=== PATIENT | female | born 1945 | race Caucasian/White ===

== ENCOUNTER 2025-04-17 12:51 | Inpatient (IN) | payer OTHER ==
[~2025-04-17] VITALS: Ht 162.6 cm; Wt 53.5 kg
[2025-04-17] MEDS ORDERED: ALBUTEROL FS 2.5 MG/3 ML VIAL.NEB ONE (13:12)
[2025-04-17] MEDS ORDERED: IPRATROPIUM NEB FS 0.5 MG/2.5 ML AMPUL.NEB ONE (13:13)
[2025-04-17 13:15] VITALS: O2SAT 93
[2025-04-17] MEDS: IPRATROPIUM NEB FS 0.5 MG/2.5 ML AMPUL.NEB NEB ONE (13:21)
[2025-04-17] MEDS: ALBUTEROL FS 2.5 MG/3 ML VIAL.NEB CONTNEB ONE (13:21)
[2025-04-17 14:09] VITALS: O2SAT 99
[2025-04-17 14:37] LABS: PLATELET COUNT (AUTO) 312 K/uL (150-450); RED BLOOD CELL COUNT(AUTO) 5.50 MIL/uL (4.0-5.2); RED CELL DISTRIBUTION WIDTH 15.8 % (11.5-15.0); WHITE BLOOD COUNT (AUTO) 13.6 K/uL (4.3-11.0)
[2025-04-17 14:45] LABS: CALCIUM, SERUM 9.4 mg/dL (8.5-10.1); CREATININE 0.9 mg/dL (0.6-1.3); SODIUM SERUM 136.0 mmol/L (136-145); UREA NITROGEN, BLOOD 15.0 mg/dL (7-18)
[2025-04-17] MEDS ORDERED: IOHEXOL-300 100 ML VIAL IV ONE (15:00)
[2025-04-17] MEDS ORDERED: CEFTRIAXONE 1GM BAG (ER ONLY) 50 ML IV ONE (17:17)
[2025-04-17] MEDS: IV NS 0.9% 1,000 ML BAG IV ONE (17:30)
[2025-04-17] MEDS: CEFTRIAXONE 1 G in IV D5W 50 ML IV ONE (17:31)
[2025-04-17] MEDS: AZITHROMYCIN 500 MG in IV D5W 250 ML IV ONE (18:00)
[2025-04-17 18:13] LABS: LACTIC ACID 3.1 mmol/L (0.4-2.0)
[2025-04-17] MEDS ORDERED: ACETAMINOPHEN 325 MG TABLET ONE (18:32)
[2025-04-17] MEDS: ACETAMINOPHEN 325 MG TABLET PO ONE (18:39)
[2025-04-17 19:55] VITALS: BP 119/61; TEMP 97.9; O2SAT 95
[2025-04-17] MEDS ORDERED: ONDANSETRON HCL/PF 4 MG/2 ML VIAL IVP PRN (21:00)
[2025-04-17] MEDS ORDERED: MAG HYDROX/AL HYDROX/SIMETH 30 ML UDC PO PRN (21:00)
[2025-04-17 21:21] LABS: LACTIC ACID REFLEX 3.4 mmol/L (0.4-1.9)
[2025-04-17] MEDS: CEFTRIAXONE 1 G in IV D5W 50 ML IV SCH (21:24)
[2025-04-17] MEDS: AZITHROMYCIN 500 MG in IV D5W 250 ML IV SCH (22:20)
[2025-04-18] VITALS (17 sets, daily range): BP systolic 94–132; BP diastolic 55–84; TEMP 97.6–97.9; O2SAT 90–100
[2025-04-18 07:26] LABS: PLATELET COUNT (AUTO) 275 K/uL (150-450); RED BLOOD CELL COUNT(AUTO) 4.83 MIL/uL (4.0-5.2); RED CELL DISTRIBUTION WIDTH 15.6 % (11.5-15.0); WHITE BLOOD COUNT (AUTO) 12.5 K/uL (4.3-11.0)
[2025-04-18 08:04] LABS: CALCIUM, SERUM 8.8 mg/dL (8.5-10.1); CREATININE 0.6 mg/dL (0.6-1.3); PHOSPHORUS 4.1 mg/dL (2.5-4.9); SODIUM SERUM 136.0 mmol/L (136-145); UREA NITROGEN, BLOOD 12.0 mg/dL (7-18)
[2025-04-18 08:41] LABS: ABG BASE EXCESS 1.9 mmol/L (-2.0-3.0); ABG OXYGEN SATURATION 81.4 % (94.0-98.0); ABG PCO2 59.5 mmHg (32.0-45.0); ABG PH 7.313 (7.350-7.450); ABG PO2 50.7 mmHg (83.0-108.0); ABG TOTAL HEMOGLOBIN 13.6 G/dL (12.0-16.0); FLOW, BLOOD GAS 10.00 L/min (0.00-30.00); FRACTIONATED INSPIRED OXYGEN 60.0 %; SITE, ABG LEFT RADIAL
[2025-04-18] MEDS: ALBUTEROL HALF STRENGTH 1.25 MG/3 ML VIAL.NEB NEB SCH (10:00)
[2025-04-18 12:11] LABS: ABG BASE EXCESS -2.7 mmol/L (-2.0-3.0); ABG OXYGEN SATURATION 99.9 % (94.0-98.0); ABG PCO2 58.9 mmHg (32.0-45.0); ABG PH 7.254 (7.350-7.450); ABG PO2 359.3 mmHg (83.0-108.0); ABG TOTAL HEMOGLOBIN 13.7 G/dL (12.0-16.0); FRACTIONATED INSPIRED OXYGEN 80.0 %; SET RATE, BG 12.0
[2025-04-18] MEDS: IPRATROPIUM NEB FS 0.5 MG/2.5 ML AMPUL.NEB NEB SCH (12:29)
[2025-04-18 17:23] LABS: ABG BASE EXCESS 1.0 mmol/L (-2.0-3.0); ABG OXYGEN SATURATION 96.3 % (94.0-98.0); ABG PCO2 48.7 mmHg (32.0-45.0); ABG PH 7.363 (7.350-7.450); ABG PO2 94.7 mmHg (83.0-108.0); ABG TOTAL HEMOGLOBIN 13.8 G/dL (12.0-16.0); FRACTIONATED INSPIRED OXYGEN 30.0 %; SET RATE, BG 12.0; SITE, ABG RIGHT RADIAL
[2025-04-18] MEDS: IV NS 0.9% 1,000 ML IV PRN (21:02)
[2025-04-19] VITALS (34 sets, daily range): BP systolic 88–148; BP diastolic 24–113; TEMP 97.9–98.5; O2SAT 86–100
[2025-04-19 08:45] LABS: ABG BASE EXCESS -0.1 mmol/L (-2.0-3.0); ABG OXYGEN SATURATION 94.8 % (94.0-98.0); ABG PCO2 52.0 mmHg (32.0-45.0); ABG PH 7.327 (7.350-7.450); ABG PO2 87.8 mmHg (83.0-108.0); ABG TOTAL HEMOGLOBIN 13.6 G/dL (12.0-16.0); FLOW, BLOOD GAS 3.00 L/min (0.00-30.00); FRACTIONATED INSPIRED OXYGEN 32.0 %; SITE, ABG RIGHT RADIAL
[2025-04-19] MEDS: ENOXAPARIN SODIUM 40 MG/0.4 ML DISP.SYRIN SQ SCH (10:04)
[2025-04-19] MEDS: ALBUTEROL HALF STRENGTH 1.25 MG/3 ML VIAL.NEB NEB SCH (12:20)
[2025-04-19] MEDS: ACETAMINOPHEN 325 MG TABLET PO PRN (22:37)
[2025-04-20] VITALS (26 sets, daily range): BP systolic 81–166; BP diastolic 62–107; TEMP 97.2–97.7; O2SAT 95–100
[2025-04-20 04:48] LABS: PLATELET COUNT (AUTO) 189 K/uL (150-450); RED BLOOD CELL COUNT(AUTO) 4.75 MIL/uL (4.0-5.2); RED CELL DISTRIBUTION WIDTH 15.8 % (11.5-15.0); WHITE BLOOD COUNT (AUTO) 11.8 K/uL (4.3-11.0)
[2025-04-20 05:00] LABS: CALCIUM, SERUM 8.7 mg/dL (8.5-10.1); CREATININE 1.1 mg/dL (0.6-1.3); PHOSPHORUS 4.4 mg/dL (2.5-4.9); SODIUM SERUM 136.0 mmol/L (136-145); UREA NITROGEN, BLOOD 36.0 mg/dL (7-18)
[2025-04-20 09:50] LABS: ABG BASE EXCESS 0.0 mmol/L (-2.0-3.0); ABG OXYGEN SATURATION 93.7 % (94.0-98.0); ABG PCO2 58.0 mmHg (32.0-45.0); ABG PH 7.296 (7.350-7.450); ABG PO2 82.9 mmHg (83.0-108.0); ABG TOTAL HEMOGLOBIN 13.5 G/dL (12.0-16.0); FLOW, BLOOD GAS 2.00 L/min (0.00-30.00); FRACTIONATED INSPIRED OXYGEN 28.0 %; SITE, ABG RIGHT RADIAL
[2025-04-20] MEDS: ENSURE ENLIVE CHOC 237 ML CAN PO SCH (12:00)
[2025-04-20 12:13] LABS: APPEARANCE,URINE TURBID (CLEAR); BLOOD, URINE 3+ Ery/uL (NEGATIVE); LEUKOCYTE ESTERASE ,URINE NEGATIVE (NEGATIVE); NITRITE, URINE POSITIVE (NEGATIVE); UGLUCOSE TRACE mg/dL (NEGATIVE)
[2025-04-20 12:26] LABS: ADD URINE CULTURE YES; SQUAMOUS EPITHELIAL CELL,UR Rare /HPF (None Seen); URINE AMORPHOUS URATE Many /HPF (None Seen)
[2025-04-20 20:49] LABS: PLATELET COUNT (AUTO) 155 K/uL (150-450); RED BLOOD CELL COUNT(AUTO) 4.77 MIL/uL (4.0-5.2); RED CELL DISTRIBUTION WIDTH 16.3 % (11.5-15.0); WHITE BLOOD COUNT (AUTO) 12.9 K/uL (4.3-11.0)
[2025-04-20 20:54] LABS: CALCIUM, SERUM 8.4 mg/dL (8.5-10.1); CREATININE 1.2 mg/dL (0.6-1.3); SODIUM SERUM 137.0 mmol/L (136-145); UREA NITROGEN, BLOOD 43.0 mg/dL (7-18)
[2025-04-21] VITALS (28 sets, daily range): BP systolic 91–138; BP diastolic 49–120; TEMP 97.8–98.2; O2SAT 90–100
[2025-04-21 04:41] LABS: PLATELET COUNT (AUTO) 142 K/uL (150-450); RED BLOOD CELL COUNT(AUTO) 4.89 MIL/uL (4.0-5.2); RED CELL DISTRIBUTION WIDTH 16.7 % (11.5-15.0); WHITE BLOOD COUNT (AUTO) 10.4 K/uL (4.3-11.0)
[2025-04-21 04:52] LABS: CALCIUM, SERUM 8.5 mg/dL (8.5-10.1); CREATININE 1.2 mg/dL (0.6-1.3); PHOSPHORUS 4.2 mg/dL (2.5-4.9); SODIUM SERUM 136.0 mmol/L (136-145); UREA NITROGEN, BLOOD 49.0 mg/dL (7-18)
[2025-04-21] MEDS: IV LR 500 ML IV ONE (13:29)
[2025-04-21] MEDS: FUROSEMIDE 20 MG/2 ML VIAL IV ONE (18:25)
[2025-04-22] VITALS (40 sets, daily range): BP systolic 83–156; BP diastolic 40–123; TEMP 97.7–98.2; O2SAT 77–100
[2025-04-22 04:39] LABS: PLATELET COUNT (AUTO) 89 K/uL (150-450); RED BLOOD CELL COUNT(AUTO) 4.72 MIL/uL (4.0-5.2); RED CELL DISTRIBUTION WIDTH 16.2 % (11.5-15.0); WHITE BLOOD COUNT (AUTO) 22.2 K/uL (4.3-11.0)
[2025-04-22 04:42] LABS: CALCIUM, SERUM 8.6 mg/dL (8.5-10.1); CREATININE 1.3 mg/dL (0.6-1.3); SODIUM SERUM 136.0 mmol/L (136-145); UREA NITROGEN, BLOOD 62.0 mg/dL (7-18)
[2025-04-22 05:48] LABS: LYMPHOCYTES % (MANUAL) 2 % (16-48); MONOCYTES % (MANUAL) 6 % (0-11.0); NEUTROPHILS % (MANUAL) 92 (42-76); PLATELET ESTIMATE DECREASED
[2025-04-22 09:23] LABS: ABG BASE EXCESS -6.3 mmol/L (-2.0-3.0); ABG OXYGEN SATURATION 99.8 % (94.0-98.0); ABG PCO2 53.6 mmHg (32.0-45.0); ABG PH 7.226 (7.350-7.450); ABG PO2 405.4 mmHg (83.0-108.0); ABG TOTAL HEMOGLOBIN 13.3 G/dL (12.0-16.0); FLOW, BLOOD GAS 40.00 L/min (0.00-30.00); FRACTIONATED INSPIRED OXYGEN 100.0 %; SITE, ABG RIGHT FEMORAL
[2025-04-22] MEDS ORDERED: SODIUM ZIRCONIUM CYCLOSILICATE 10 GM POWD.PACK PO SCH (10:30)
[2025-04-22 12:00] LABS: FLOW, BLOOD GAS 40.00 L/min (0.00-30.00); SITE, ABG RIGHT FEMORAL
[2025-04-22] MEDS: SODIUM ZIRCONIUM CYCLOSILICATE 10 GM POWD.PACK PO SCH (12:22)
[2025-04-22 16:53] LABS: ABG BASE EXCESS -5.3 mmol/L (-2.0-3.0); ABG OXYGEN SATURATION 98.7 % (94.0-98.0); ABG PCO2 40.1 mmHg (32.0-45.0); ABG PH 7.323 (7.350-7.450); ABG PO2 164.0 mmHg (83.0-108.0); ABG TOTAL HEMOGLOBIN 13.3 G/dL (12.0-16.0); FRACTIONATED INSPIRED OXYGEN 40.0 %; SET RATE, BG 12.0; SITE, ABG RIGHT FEMORAL
[2025-04-22 16:54] LABS: CREATININE, URINE 102.9 MG/DL (30.0-125.0); URINE SODIUM, RANDOM 18.0 mmol/l (40-220); URINE TOTAL PROTEIN 125.8 mg/dL (0-11.9)
[2025-04-22 16:54] LABS: CALCIUM, SERUM 8.5 mg/dL (8.5-10.1); CREATININE 1.5 mg/dL (0.6-1.3); SODIUM SERUM 137.0 mmol/L (136-145); UREA NITROGEN, BLOOD 71.0 mg/dL (7-18)
[2025-04-22 17:02] LABS: APPEARANCE,URINE CLEAR (CLEAR); BLOOD, URINE 3+ Ery/uL (NEGATIVE); LEUKOCYTE ESTERASE ,URINE 1+ (NEGATIVE); NITRITE, URINE NEGATIVE (NEGATIVE); UGLUCOSE NEGATIVE (NEGATIVE)
[2025-04-22 17:48] LABS: EOSINOPHIL,URINE None Seen
[2025-04-22 17:55] LABS: ADD URINE CULTURE YES
[2025-04-22 17:56] LABS: COARSE GRANULAR CASTS,URINE Moderate /LPF (None Seen); SQUAMOUS EPITHELIAL CELL,UR Few /HPF (None Seen)
[2025-04-22] MEDS: AMIODARONE 150 MG in IV D5W 100 ML IV ONE ×2 (17:57→22:54)
[2025-04-22] MEDS: SODIUM BICARBONATE SYR 50 MEQ/50 ML DISP.SYRIN IV ONE (21:40)
[2025-04-22] MEDS: DEXTROSE 50%-WATER 50 ML DISP.SYRIN IVP ONE (21:43)
[2025-04-22] MEDS ORDERED: INSULIN REGULAR, HUMAN 100 UNIT/ML 10 ML VIAL ONE (21:58)
[2025-04-22] MEDS: SODIUM ZIRCONIUM CYCLOSILICATE 10 GM POWD.PACK ONE (22:03)
[2025-04-22] MEDS: INSULIN REGULAR, HUMAN 100 UNIT/ML 10 ML VIAL IV ONE (22:04)
[2025-04-22] MEDS: SODIUM ZIRCONIUM CYCLOSILICATE 5 GM POWD.PACK NG SCH (22:06)
[2025-04-22] MEDS: AMIODARONE 450 MG in IV D5W 241 ML IV PRN (23:58)
[2025-04-22] MEDS: IV NS 0.9% 500 ML BAG IV ONE (23:59)
[2025-04-23] VITALS (112 sets, daily range): BP systolic 39–141; BP diastolic 15–92; TEMP 97.8–99.7; O2SAT 81–100
[2025-04-23] MEDS: MEROPENEM 1 G in IV NS 0.9% 100 ML IV ONE (00:20)
[2025-04-23] MEDS: MEROPENEM 500MG/NS 50 ML PB IV ONE (00:23)
[2025-04-23] MEDS: PHENYLEPHRINE 50 MG in IV NS 0.9% 245 ML IV PRN ×2 (00:57→15:00)
[2025-04-23] MEDS: PHENYLEPHRINE 10 MG/ML VIAL ONE (01:01)
[2025-04-23 04:31] LABS: RED BLOOD CELL COUNT(AUTO) 4.88 MIL/uL (4.0-5.2); RED CELL DISTRIBUTION WIDTH 17.9 % (11.5-15.0)
[2025-04-23 04:45] LABS: CREATINE KINASE, TOTAL 752 U/L (26-192)
[2025-04-23 04:49] LABS: ASPARTATE AMINOTRANSFERASE > 1000 U/L (15-37); CALCIUM, SERUM 8.1 mg/dL (8.5-10.1); CREATININE 1.7 mg/dL (0.6-1.3); PHOSPHORUS 4.8 mg/dL (2.5-4.9); SODIUM SERUM 139 mmol/L (136-145); TOTAL PROTEIN, SERUM 6.2 g/dL (6.4-8.2); UREA NITROGEN, BLOOD 76 mg/dL (7-18)
[2025-04-23 04:53] LABS: PLATELET COUNT (AUTO) 22 K/uL (150-450)
[2025-04-23 05:08] LABS: LYMPHOCYTES % (MANUAL) 1 % (16-48); MONOCYTES % (MANUAL) 6 % (0-11.0); NEUTROPHILS % (MANUAL) 93 (42-76)
[2025-04-23 05:09] LABS: PLATELET ESTIMATE DECREASED
[2025-04-23 05:12] LABS: WHITE BLOOD COUNT (AUTO) 14.9 K/uL (4.3-11.0)
[2025-04-23] MEDS: IV LR 500 ML IV ONE (07:30)
[2025-04-23] MEDS ORDERED: NOREPINEPHRINE 32 MG in IV NS 0.9% 218 ML IV PRN (07:30)
[2025-04-23] MEDS: NOREPINEPHRINE 8 MG in IV NS 0.9% 242 ML IV PRN (08:10)
[2025-04-23 08:28] LABS: ABG BASE EXCESS -6.8 mmol/L (-2.0-3.0); ABG OXYGEN SATURATION 45.0 % (94.0-98.0); ABG PCO2 54.0 mmHg (32.0-45.0); ABG PH 7.215 (7.350-7.450); ABG PO2 32.0 mmHg (83.0-108.0); ABG TOTAL HEMOGLOBIN 13.4 G/dL (12.0-16.0); FRACTIONATED INSPIRED OXYGEN 30.0 %; SET RATE, BG 12.0
[2025-04-23 08:47] LABS: INR 5.05 (0.91-1.10)
[2025-04-23] MEDS ORDERED: DESMOPRESSIN 20 MCG in IV NS 0.9% 50 ML IV ONE (09:30)
[2025-04-23] MEDS: PROPOFOL 100 ML IV PRN (09:41)
[2025-04-23] MEDS: BUMETANIDE INJ 4 MG in IV NS 0.9% 24 ML IV ONE (09:48)
[2025-04-23] MEDS: SODIUM ZIRCONIUM CYCLOSILICATE 10 GM POWD.PACK NG SCH (09:48)
[2025-04-23] MEDS: SODIUM ZIRCONIUM CYCLOSILICATE 10 GM POWD.PACK PO ONE (10:26)
[2025-04-23] MEDS ORDERED: FENTANYL CITRAT IV 2,500 MCG in IV NS 0.9% 200 ML IV PRN (11:30)
[2025-04-23] MEDS: MEROPENEM 500 MG in IV NS 0.9% 50 ML IV SCH (11:46)
[2025-04-23 11:49] LABS: ABG BASE EXCESS -11.3 mmol/L (-2.0-3.0); ABG OXYGEN SATURATION 99.9 % (94.0-98.0); ABG PCO2 38.0 mmHg (32.0-45.0); ABG PH 7.229 (7.350-7.450); ABG PO2 494.0 mmHg (83.0-108.0); ABG TOTAL HEMOGLOBIN 13.7 G/dL (12.0-16.0); FRACTIONATED INSPIRED OXYGEN 100.0 %; PEEP,BG 0 cm H2O; SET RATE, BG 22.0; SITE, ABG ALINE; VT, ABG 475 mL
[2025-04-23] MEDS ORDERED: ALBUMIN 25% 12.5 GM/50 ML BOTTLE IV ONE (12:00)
[2025-04-23] MEDS ORDERED: ROCURONIUM BROMIDE 50 MG/5 ML IV ONE (12:09)
[2025-04-23] MEDS ORDERED: ETOMIDATE 2 MG/ML VIAL IV ONE (12:09)
[2025-04-23] MEDS ORDERED: DOBUTamine 500 MG in IV D5W 210 ML IV SCH (12:30)
[2025-04-23] MEDS: INSULIN REGULAR, HUMAN 100 UNIT/ML 10 ML VIAL IV ONE (12:45)
[2025-04-23] MEDS: DEXTROSE 50%-WATER 50 ML DISP.SYRIN IVP ONE (12:45)
[2025-04-23] MEDS: SODIUM BICARBONATE SYR 50 MEQ/50 ML DISP.SYRIN IV ONE (13:09)
[2025-04-23 13:16] LABS: CALCIUM, SERUM 7.5 mg/dL (8.5-10.1); CREATININE 2.0 mg/dL (0.6-1.3); PHOSPHORUS 5.2 mg/dL (2.5-4.9); SODIUM SERUM 138.0 mmol/L (136-145); UREA NITROGEN, BLOOD 79.0 mg/dL (7-18)
[2025-04-23] MEDS: DOBUTamine 500 MG in IV D5W 210 ML IV PRN (13:59)
[2025-04-23] MEDS: IV LR 1000 ML 1,000 ML IV ONE (14:02)
[2025-04-23] MEDS: VASOPRESSIN INJ 40 UNIT in IV NS 0.9% 38 ML IV PRN (15:42)
[2025-04-23] MEDS: IV NS 0.9% 250 ML IV ONE (15:55)
[2025-04-23 16:46] LABS: CALCIUM, SERUM 7.8 mg/dL (8.5-10.1); CREATININE 2.1 mg/dL (0.6-1.3); SODIUM SERUM 141.0 mmol/L (136-145)
[2025-04-23] MEDS: KETAMINE HCL (500MG/10ML) 50 MG/ML VIAL IV ONE (16:52)
[2025-04-23 17:02] LABS: UREA NITROGEN, BLOOD 80.0 mg/dL (7-18)
[2025-04-23] MEDS: NOREPINEPHRINE 32 MG in IV NS 0.9% 218 ML IV PRN (20:10)
[2025-04-23] MEDS: PHENYLEPHRINE 100 MG in IV NS 0.9% 240 ML IV PRN (21:01)
[2025-04-23 23:26] LABS: ABG BASE EXCESS -9.9 mmol/L (-2.0-3.0); ABG OXYGEN SATURATION 99.8 % (94.0-98.0); ABG PCO2 38.5 mmHg (32.0-45.0); ABG PH 7.252 (7.350-7.450); ABG PO2 506.7 mmHg (83.0-108.0); ABG TOTAL HEMOGLOBIN 12.1 G/dL (12.0-16.0); FRACTIONATED INSPIRED OXYGEN 100.0 %; PEEP,BG 0 cm H2O; SET RATE, BG 22.0; SITE, ABG ALINE; VT, ABG 475 mL
[2025-04-23] MEDS: ETOMIDATE 2 MG/ML VIAL IV ONE (23:42)
[2025-04-23] MEDS: KETAMINE HCL IN 0.9 % NACL 50 MG/5 ML SYRINGE IV ONE (23:43)
[2025-04-23] MEDS: ROCURONIUM BROMIDE 50 MG/5 ML IV ONE (23:43)
[2025-04-24] VITALS (58 sets, daily range): BP systolic 30–113; BP diastolic 5–78; TEMP 97.8–99.7; O2SAT 72–80
[2025-04-24] MEDS ORDERED: VASOPRESSIN INJ 20 UNIT/ML VIAL ONE (02:37)
[2025-04-24 04:44] LABS: CALCIUM, SERUM 8.6 mg/dL (8.5-10.1); CREATININE 2.5 mg/dL (0.6-1.3); SODIUM SERUM 146 mmol/L (136-145)
[2025-04-24 04:49] LABS: INR 2.46 (0.91-1.10)
[2025-04-24 04:53] LABS: UREA NITROGEN, BLOOD 80 mg/dL (7-18)
[2025-04-24 04:58] LABS: TOTAL PROTEIN, SERUM 6.3 g/dL (6.4-8.2)
[2025-04-24 05:27] LABS: ASPARTATE AMINOTRANSFERASE > 1000 U/L (15-37)
[2025-04-24] MEDS: DEXTROSE 50%-WATER 50 ML DISP.SYRIN IVP ONE (05:46)
[2025-04-24] MEDS: DEXTROSE 50%-WATER 50 ML DISP.SYRIN ONE (06:03)
[2025-04-24] MEDS: DEXTROSE 50%-WATER 50 ML DISP.SYRIN IVP PRN (06:48)
[2025-04-24 08:07] LABS: PTH, INTACT 122 pg/mL (15-65)
[2025-04-24 08:22] LABS: PLATELET COUNT (AUTO) 57 K/uL (150-450); RED BLOOD CELL COUNT(AUTO) 4.35 MIL/uL (4.0-5.2); RED CELL DISTRIBUTION WIDTH 16.8 % (11.5-15.0)
[2025-04-24 09:02] LABS: WHITE BLOOD COUNT (AUTO) 30.2 K/uL (4.3-11.0)
[2025-04-24 11:59] LABS: CALCIUM, SERUM 8.3 mg/dL (8.5-10.1); CREATININE 2.9 mg/dL (0.6-1.3); PHOSPHORUS 7.6 mg/dL (2.5-4.9); SODIUM SERUM 142.0 mmol/L (136-145)
[2025-04-24 12:10] LABS: UREA NITROGEN, BLOOD 81.0 mg/dL (7-18)
[2025-04-24] MEDS ORDERED: SODIUM ZIRCONIUM CYCLOSILICATE 10 GM POWD.PACK PO SCH (14:00)
[2025-04-24] MEDS: MORPHINE SULFATE PF DRIP 100 MG in IV D5W 96 ML IV PRN (14:30)
[2025-04-24 14:32] LABS: MONOCYTES % (MANUAL) 2 % (0-11.0); NEUTROPHILS % (MANUAL) 98 (42-76); PLATELET ESTIMATE DECREASED
[2025-04-24] MEDS: LORAZEPAM INJ 2 MG/ML VIAL IV ONE (14:34)
[2025-04-24] MEDS ORDERED: MORPHINE SULFATE PF DRIP 100 MG in IV D5W 96 ML IV PRN (15:00)
[2025-04-24 20:07] LABS: *MYCOPLASMA PNEUMONIAE IgG 290 U/mL (0-99); *MYCOPLASMA PNEUMONIAE IgM <770 U/mL (0-769)
[2025-04-27 21:07] LABS: LEGIONELLA PNEUMOPHILIA AB Non Reactive (Non Reactive)
[2025-04-28 08:12] LABS: *SPE A/G RATIO 0.8 (0.7-1.7); *SPE ALBUMIN 2.7 g/dL (2.9-4.4); *SPE ALPHA-1-GLOBULIN 0.3 g/dL (0.0-0.4); *SPE ALPHA-2-GLOBULIN 0.4 g/dL (0.4-1.0); *SPE BETA GLOBULIN 1.1 g/dL (0.7-1.3); *SPE GLOBULIN, TOTAL 3.3 g/dL (2.2-3.9); *SPE M-SPIKE Not Observed g/dL (Not Observed); *SPE PROTEIN TOTAL 6.0 g/dL (6.0-8.5); *SPEGAMMA GLOBULIN 1.5 g/dL (0.4-1.8)
== END 2025-04-24 19:03 | DRG 871 ==
LOC: ER 12:55 → MED 19:20 → ICU 04-18 08:51
PROVIDERS: ADMIT Nurse Practitioner Acute Care; ATTEND Nurse Practitioner Acute Care
PROC: 5A09557 Assistance with Respiratory Ventilation, Greater than 96 Consecutive Hours, Continuous Positive Airway Pressure (ICD-10-PCS; principal; 2025-04-18)
PROC: 5A1945Z Respiratory Ventilation, 24-96 Consecutive Hours (ICD-10-PCS; 2025-04-23)
PROC: 0BH17EZ Insertion of Endotracheal Airway into Trachea, Via Natural or Artificial Opening (ICD-10-PCS; 2025-04-23)
PROC: 03HB33Z Insertion of Infusion Device into Right Radial Artery, Percutaneous Approach (ICD-10-PCS; 2025-04-23)
PROC: 5A2204Z Restoration of Cardiac Rhythm, Single (ICD-10-PCS; 2025-04-23)
PROC: 30233K1 Transfusion of Nonautologous Frozen Plasma into Peripheral Vein, Percutaneous Approach (ICD-10-PCS; 2025-04-23)
PROC: 30233R1 Transfusion of Nonautologous Platelets into Peripheral Vein, Percutaneous Approach (ICD-10-PCS; 2025-04-23)
PROC: 30233M1 Transfusion of Nonautologous Plasma Cryoprecipitate into Peripheral Vein, Percutaneous Approach (ICD-10-PCS; 2025-04-23)
PROC: 02HV33Z Insertion of Infusion Device into Superior Vena Cava, Percutaneous Approach (ICD-10-PCS; 2025-04-23)
PROC: B548ZZA Ultrasonography of Superior Vena Cava, Guidance (ICD-10-PCS; 2025-04-23)
DX: A41.9 Sepsis, unspecified organism (principal); D65 Disseminated intravascular coagulation [defibrination syndrome]; Z51.5 Encounter for palliative care; J15.69 Pneumonia due to other Gram-negative bacteria; J96.21 Acute and chronic respiratory failure with hypoxia; J96.22 Acute and chronic respiratory failure with hypercapnia; I50.23 Acute on chronic systolic (congestive) heart failure; K72.00 Acute and subacute hepatic failure without coma; G92.8 Other toxic encephalopathy; J15.9 Unspecified bacterial pneumonia; R57.0 Cardiogenic shock; J44.0 Chronic obstructive pulmonary disease with (acute) lower respiratory infection; S27.321A Contusion of lung, unilateral, initial encounter; N17.9 Acute kidney failure, unspecified; I11.0 Hypertensive heart disease with heart failure; I27.21 Secondary pulmonary arterial hypertension; J44.1 Chronic obstructive pulmonary disease with (acute) exacerbation; J45.901 Unspecified asthma with (acute) exacerbation; J43.9 Emphysema, unspecified; Z85.118 Personal history of other malignant neoplasm of bronchus and lung; E87.5 Hyperkalemia; I48.91 Unspecified atrial fibrillation; Z87.891 Personal history of nicotine dependence; Z98.84 Bariatric surgery status; V49.9XXA Car occupant (driver) (passenger) injured in unspecified traffic accident, initial encounter; Y93.9 Activity, unspecified; E83.89 Other disorders of mineral metabolism; E16.2 Hypoglycemia, unspecified; Z66 Do not resuscitate; Y92.410 Unspecified street and highway as the place of occurrence of the external cause
CPT/HCPCS: 31720; 36415; 36600; 70450-TC; 71045-TC; 71260-TC; 76705-TC; 76770-TC; 80048-TC; 80053-TC; 81001; 82247-TC; 82248-TC; 82378; 82533; 82550-TC; 82553; 82570-TC; 82803-TC; 82962-TC; 83605-TC; 83735-TC; 83970; 84100-TC; 84132-TC; 84155; 84165; 84244; 84300-TC; 84484-TC; 85025-TC; 85027-TC; 85385-TC; 85610-TC; 85730-TC; 86713; 86738; 86850-TC; 87040-TC; 87081-TC; 87086-TC; 87449; 93307-TC; 94002-TC; 94003-TC; 94799-TC; A4223; A6213; G0378; J0282; J0456; J0696; J1250; J1650; J1815; J1938; J2060; J2185; J2274; J2919; J3010; J3490; J7030; J7040; J7050; J7060; J7070; J7120; P9012; P9017; P9034; Q9967